=== PATIENT | male | born 1975 | race Caucasian/White ===

== ENCOUNTER 2021-06-13 11:14 | Emergency (ER) | payer OTHER ==
[~2021-06-13] VITALS: Ht 172.7 cm; Wt 90.7 kg
--- NOTE | ~2021-06-13 | EMS ---
[address] [address] EMS Patient Care Report Name: RASHAAD DUMONT Room #: DEP ALEN Plummer#: [id number] Admission: 06/13/21 Attend Phys: Discharge: 06/13/21 Date of : 75 Report #: [id number] THIS REPORT FOR: //name// Report Transmitted: 06/17/2021 09:46 EMS Care Summary [place], [place]/[facility] Incident [id number] @ 06/13/2021 10:29 Incident Location [address] [place] [address] Patient RASHAAD DUMONT Male, 45 Years 1975 Patient Address [address] [place] [id number] Elevation (STEMI) Myocardial Infarction,Stroke/CVA,Hyperlipidemia,Schizophrenia,Anxiety,Post Traumatic Stress Disorder (PTSD),Type 2 Diabetes, Patient Allergies Penicillin allergy,Prozac, Patient Medications Metformin, Chief Complaint LIMB WEAKNESS Disposition Transported No Lights/[facility] Dis[facility] Reason Chest Pain (Non-Traumatic) Transported To [facility] Narrative M42 WAS DISPATCHED FOR A CHEST PAIN. UPON ARRIVAL THE PT WAS LAYING IN BED IN [address] [address] EMS Patient Care Report Name: RASHAAD DUMONT Room #: DEP Kavitha#: [id number] Admission: 06/13/21 Attend Phys: Discharge: 06/13/21 Date of : 75 Report #: [id number] THE CARE FACILITY. THE PT INOFRMED EMS THAT HE HAD BEEN UP WALKING AROUND THE FACILITY ABOUT AN HOUR PRIOR, THE PT HAD THEN GOTTEN INTO BED TO READ A BOOK. THIRTY MINUTES PRIOR TO EMS ARRIVAL THE PT REALIZED HE WAS UNABLE TO MOVE HIS ARMS OR LEGS. THE PT ALSO REPORTED CHEST PAIN THAT WAS DULL IN NATURE IN THE MIDDLE OF HIS CHEST. THE PT SAID HE HAD A STROKE AND HEART ATTACK 20 YEARS PRIOR BUT DID NOT HAVE ANY LASTING DEFICITS. THE PT DID NOT HAVE SLURRED SPEECH NOR DID HE HAVE ANY FACIAL DROOP. THE PT WAS ABLE TO HOLD HIS EXTREMITIES UP ON HIS OWN IF THEY WERE LIFTED FOR HIM, BUT HE CONTINUED TO STATE THAT HE WAS UNABLE TO USE HIS ARMS OR LEGS. THE PT WAS MOVED TO THE STRETCHER AND PLACED IN THE AMBULANCE. THE PT WAS TRANSPORTED TO THE HOSPITAL AND MONITORED ENROUTE. THE PT WAS TRANSFERRED TO HOSPITAL STAFF WITH A REPORT. EMS RETURNED TO SERVICE. Initial Vitals @10:48P: 121,R: 16,BP: 132/93,Pain: 2/10,GCS: 15,SpO2: 98,Revised Trauma: 12,OR Suspected: false @11:02P: 117,R: 16,BP: 116/68,Pain: 2/10,GCS: 15,CO: 9,SpO2: 98,Revised Trauma: 12,OR Suspected: false @10:42P: 121,R: 16,BP: 130/85,Pain: 2/10,GCS: 15,Temp: 101F,SpO2: 98,Revised Trauma: 12, @10:51P: 124,R: 16,Pain: 2/10,GCS: 15,Glucose: 129,CO: 11,SpO2: 97,OR Suspected: false Assessments @10:42MENTAL:Person Oriented,Event Oriented,Place Oriented,Time Oriented,SKIN:HEENT:Head/Face: No Abnormalities,Eyes: No Abnormalities,Neck/Airway: No Abnormalities,LUNG SOUNDS:General: No Abnormalities,ABDOMEN:General: No Abnormalities,PELVIS//GI:No Abnormalities,EXTREMITIES:Right Arm: Weakness,Left Leg: Weakness,Right Leg: Weakness,Left Arm: Weakness,PULSE:Radial: 2+ Normal,NEURO:No Abnormalities, Impression Generalized Weakness Procedures @10:51 12-Lead ECG Response: UnchangedSucceeded @10:42 ALS Assessment Response: UnchangedSucceeded @10:49 IV Therapy - Saline Lock 0cc (18 ga) Site: Antecubital-Right Response: UnchangedFailed Timeline 10:27,Call Received 10:27,Dispatch Notified 10:29,Dispatched 10:30,En Route [address] [address] EMS Patient Care Report Name: RASHAAD DUMONT Room #: DEP ALEN Plummer#: [id number] Admission: 06/13/21 Attend Phys: Discharge: 06/13/21 Date of : 75 Report #: [id number] 10:40,On Scene 10:42,At Patient 10:42,ALS Assessment,Response: UnchangedSucceeded, 10:42,BP: 130/85 M,PULSE: 121,RR: 16 R,SPO2: 98 Ox,ETCO2: ,BG: ,PAIN: 2,GCS: 15, 10:48,BP: 132/93 M,PULSE: 121,RR: 16 R,SPO2: 98 Ox,ETCO2: ,BG: ,PAIN: 2,GCS: 15, 10:49,IV Therapy - Saline Lock 0cc 18 ga Site: Antecubital-Right,Response: UnchangedFailed, 10:51,12-Lead ECG,Response: UnchangedSucceeded, 10:51,BP: / M,PULSE: 124,RR: 16 R,SPO2: 97 Ox,ETCO2: ,B,PAIN: 2,GCS: 15, 11:00,Depart Scene 11:02,BP: 116/68 M,PULSE: 117,RR: 16 R,SPO2: 98 Ox,ETCO2: ,BG: ,PAIN: 2,GCS: 15, 11:08,At Destination 11:32,Call Closed Disclaimer v1.1 Copyright 2021 [employer] This EMS Care Summary contains data elements from the applicable legal record (which may be displayed differently). It is designed to provide pertinent information for the following purposes: continuity of care, clinical quality, and state data reporting. The complete legal record is available to ED staff and administrators of the receiving hospital in [employer] Patient Tracker. All data is provided "as is."
[2021-06-13 12:36] LABS: CALCIUM 8.6 mg/dL (8.5-10.1); CREATININE 0.7 mg/dL (0.7-1.3); POTASSIUM 3.9 mmol/L (3.5-5.1)
[2021-06-13 12:42] LABS: ALBUMIN 3.6 g/dL (3.4-5.0); TOTAL BILIRUBIN 0.3 mg/dL (0.2-1.0)
[2021-06-13 13:24] LABS: URINE BILIRUBIN NEGATIVE (Negative); URINE BLOOD NEGATIVE (Negative); URINE CLARITY CLEAR; URINE COLOR YELLOW; URINE GLUCOSE-RANDOM* NEGATIVE (Negative); URINE KETONES NEGATIVE (Negative); URINE LEUKOCYTES-REFLEX NEGATIVE (Negative); URINE NITRITE-REFLEX NEGATIVE (Negative); URINE PROTEIN (DIPSTICK) NEGATIVE (Negative); URINE UROBILINOGEN 0.2 E.U./dl (0.2-1.0)
[2021-06-13 14:42] LABS: ABSOLUTE NEUTROPHILS 4.1 thou/uL (1.4-8.2); BASOPHILS 0.4 % (0.0-2.0); HEMATOCRIT 35.8 % (42.0-52.0); HEMOGLOBIN 11.9 gm/dL (14.0-18.0); LYMPHOCYTES 11.1 % (24.0-44.0); MCH 28.1 pg (26.0-34.0); MCHC 33.1 g/dL (28.0-37.0); MCV 84.8 fL (80.0-100.0); PLATELET COUNT 187 thou/uL (150-400); POLYS 77.5 % (36.0-66.0); RBC 4.23 mil/uL (4.50-6.00); RDW 13.6 % (10.5-14.5); WBC 5.3 thou/uL (4.0-11.0)
[2021-06-13 16:15] VITALS: BP 125/75
--- NOTE | 2021-06-15 07:37 | EKG ---
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 : 1975 Requested By: Zoe Chavez Order Number: [id number] MD: Ean Roberson Measurements Intervals [place] Rate: 102 P: 54 TN: 148 QRS: 52 QRSD: 94 T: 46 QT: 314 QTc: 409 Interpretive Statements Sinus tachycardia Probable left atrial enlargement No previous ECG available for comparison Electronically Signed On 06-15-2021 7:37:35 FACILITIES MANAGEMENT EXECUTIVE by Ean Roberson [email or web address] <ELECTRONICALLY SIGNED> By: Ean Roberson MD, [facility] 06/15/21 0737 [id number] Ean Roberson MD, FACC /EPI
== END 2021-06-13 15:37 | disposition home or self-care (01) ==
LOC: EDBD 11:14 → ER 11:14
PROVIDERS: Nurse Practitioner
DX: U07.1 COVID-19 (principal); R51.9 Headache, unspecified; F20.9 Schizophrenia, unspecified; E11.9 Type 2 diabetes mellitus without complications; I10 Essential (primary) hypertension; K21.9 Gastro-esophageal reflux disease without esophagitis; E78.5 Hyperlipidemia, unspecified; F32.9 Major depressive disorder, single episode, unspecified; Z88.0 Allergy status to penicillin; Z88.1 Allergy status to other antibiotic agents